=== PATIENT | female | born 1990 | race Caucasian/White ===

== ENCOUNTER 2025-03-28 16:38 | Emergency (ER) | payer OTHER, SELFPAY ==
[2025-03-28 16:40] VITALS: BP 120/99; PULSE 78; RESP 18; TEMP 37; O2SAT 97; BMI 48.2
--- NOTE | 2025-03-28 16:45 | EX.ED.DYSGE1 ---
HPI History of Present Illness Chief Complaint: Allergic Reaction Narrative Narrative: 34-year-old female past medical history of asthma and depression presents from urgent care with possible allergic reaction and chest heaviness. She relates history that she started taking Nexium on the 17, approximately 7 days ago. She took it this morning around 745. She started taking it with Benadryl because she began having itchiness after she took it the first time. She thought maybe that it was just from her regular allergies so she took Benadryl. This morning when she took the Nexium at 745, a few hours later at around 1130 she began having more chest heaviness which was new for her. She used her albuterol inhaler as well, but still continued to have tingling in the back of her throat and chest heaviness. She denies any nausea or vomiting, no diaphoresis, no exacerbating or alleviating factors. She went to urgent care who urged her to come to the emergency department because of the chest heaviness possibly being cardiac in nature. She denies any family history of early coronary artery disease. [facility] Medical History (Updated 03/28/25 @ 19:55 by Irving Booth MD) Asthma Migraines Depression Allergy/AdvReac Type Severity Reaction Status Date / Time No Known Allergies Allergy Verified 03/28/25 16:42 Social History Smoking Status: Former smoker ROS ROS ED ROS Narrative Review of systems positive for pruritus of skin improved with Benadryl. Positive chest heaviness today beginning at around 11 or 1130, approximately 5 hours ago. Positive tingling in back of throat. Positive shortness of breath with history of asthma. EXAM Physical Exam Narrative Exam Narrative: Afebrile. Vital signs noted. Nontoxic-appearing. HEENT examination grossly unremarkable, PERRL, EOMI. Airway patent, no drooling or trismus. No angioedema of tongue. Cardiovascular examination regular rate and rhythm. Lungs are clear to auscultation bilaterally without wheezing or stridor. Abdomen soft and nontender. Neurological examination nonfocal, nonlateralizing. No noted rash. Const Vital Signs: 03/28/25 16:40 03/28/25 18:35 03/28/25 19:51 Temperature 98.6 F Temperature Source Oral Pulse Rate 78 75 72 Respiratory Rate 18 23 H 16 Blood Pressure 120/99 H 102/79 119/79 Blood Pressure Mean 106 86 92 Pulse Ox 97 99 97 Oxygen Delivery Method Room Air Room Air Room Air MDM MDM MDM Narrative Medical decision making narrative: Differential diagnosis includes but not limited to anaphylaxis versus medication reaction versus asthma exacerbation versus ACS. I do not feel that she is having an anaphylactic reaction and she last took the Nexium at 7 AM, approximately 10 hours ago. She has stable vital signs with BP 120/99, she is not tachycardic. Pulse ox 97% on room air without evidence of hypoxia. Chest pain workup was pursued in order to rule out ACS. I do not feel she requires epinephrine. She was told to avoid the use of Nexium. EKG was obtained and interpreted by myself independently as normal sinus rhythm at 73 bpm without ectopy or acute ST changes. No STEMI. I reviewed her laboratory work and she has normal white count of 10.5, hemoglobin 13.1, hematocrit 38.7, platelet count normal at 268. Electrolyte panel is significant for carbon dioxide of 19.4 which may be secondary to slight hyperventilation, other electrolytes normal with glucose 84, normal anion gap of 12. Initial high-sensitivity troponin is less than 6. On independent interpretation of her chest x-ray in 1 view, there is no acute process, no pneumonia or pneumothorax. I reviewed the radiology report which confirms my independent interpretation. Repeat examinations show her resting comfortably and at times she has a pulse ox of 100% on room air. She states she feels slightly improved. Her repeat troponin is also less than 6 for an acceptable delta troponin. I feel she has been ruled out for ACS with biomarkers. At this point in time, I feel she can be discharged safely home with follow-up. Return instructions to the emergency department were reviewed. While she is to avoid the use of Nexium, I do not feel that she was having an anaphylactic reaction and that she requires epinephrine as an outpatient. Disposition is discharged home in stable condition. History & Record Review Discussion w/independent historian: Patient Lab Data Attestation: I reviewed the patient's lab results. Labs: Laboratory Results - last 24 hr 03/28/25 03/28/25 17:15 18:55 WBC 10.5 RBC 4.56 Hgb 13.1 Hct 38.7 MCV 84.9 MCH 28.7 MCHC 33.9 RDW Std Deviation 39.8 RDW Coeff of Leona 12.9 Plt Count 268 MPV 11.9 Immature Gran % (Auto) 0.300 Neut % (Auto) 62.6 Lymph % (Auto) 26.4 Gilmer % (Auto) 6.6 Eos % (Auto) 3.6 Baso % (Auto) 0.5 Absolute Neuts (auto) 6.6 Absolute Lymphs (auto) 2.76 Nucleated RBC % 0 Sodium 139 Potassium 3.8 Chloride 107 Carbon Dioxide 19.4 L Anion Gap 12 BUN 10 Creatinine 0.98 Estim Creat Clear Calc 97.51 Est GFR (MDRD) Non-Af 79 BUN/Creatinine Ratio 9.8 L Glucose 84 Calcium 9.2 Troponin T High Sens < 6 Troponin T Hi Sens 2 Hr < 6 Radiography Chest X-Ray - ED: 1 View, Read by ED Physician, Read by Radiologist and No Acute Disease Diagnostic Testing: Clinical Impression(s) from Imaging Studies Chest X-Ray 03/28/25 17:20 IMPRESSION: No focal consolidations. Reading Location: [facility] Discharge Plan Triage Chief Complaint: Allergic Reaction ED Provider: Irving Booth Dx/Rx/DC Orders Clinical Impression: Chest pain, Medication adverse effect Instructions: ED ADVERSE DRUG REACTION Allergic, ED Chest Pain, Uncertain Cause Primary Care Provider: Care Physician,No Primary Referrals: Care Physician,No Primary [Primary Care Provider] - Activity Restrictions/Additional Instructions: Avoid the use of Nexium in the future. Return to the emergency department with increased chest pain/pressure, difficulty breathing or swallowing, new or worsening symptoms. Print Language: Kazakh Disposition Disposition: Home, Self Care
--- NOTE | 2025-03-28 16:52 | EKG12_ITS ---
Test Reason : Blood Pressure : */* mmHG Vent. Rate : 73 BPM Atrial Rate : 73 BPM P-R Int : 182 ms QRS Dur : 74 ms QT Int : 392 ms P-R-T Axes : 24 35 13 degrees QTcB Int : 431 ms Normal sinus rhythm Normal ECG Confirmed by MARISOL BO, KAROLINA ([id number]), technical writer and editor BONI BARNES ([id number]) on 04/01/2025 9:41:13 AM Referred By: MEIR Confirmed By: KAROLINA DAMON MD
--- NOTE | 2025-03-28 17:20 | RAD_ITS ---
PROCEDURE: CHEST 1 VIEW (PORTABLE) 03/28/2025 REASON FOR EXAM: CHEST PAIN TECHNIQUE: Frontal view of the chest. COMPARISON: None FINDINGS: No focal consolidation. No pleural effusion or pneumothorax. Cardiac silhouette is within normal limits. RAD/Chest 1 View (Portable) IMPRESSION: No focal consolidations. Reading Location: [id number]
[2025-03-28 17:38] LABS: Hematocrit 38.7 % (37-47); Hemoglobin 13.1 g/dL (12.0-15.0); Immature Granulocytes Count 0.030 X10^3/uL (0.0-0.0); Mean Corp Hgb Conc 33.9 g/dL (32-36); Mean Corpuscular Volume 84.9 fL (81-99); Mean Platelet Vol. 11.9 fl (6.2-12.0); NRBC Flagged by Analyzer 0 % (0-5); Platelet Count 268 K/mm3 (150-450); RBC Distribution Width CV 12.9 % (11.6-14.6); RBC Distribution Width SD 39.8 fl (35.1-43.9); Red Blood Count 4.56 M/mm3 (4.2-5.4); White Blood Count 10.5 K/mm3 (4.4-11.0)
[2025-03-28 18:11] LABS: Troponin T High Sensitivity < 6 ng/L (<=14)
[2025-03-28 18:17] LABS: Anion Gap 12 (5-15); BUN 10 mg/dL (4-19); BUN/Creat Ratio 9.8 RATIO (10-20); Calcium,Total 9.2 mg/dL (7.6-11.0); Carbon Dioxide 19.4 mmol/L (21.0-32.0); Chloride 107 mmol/L (98-108); Estimated Creatinine Clearance 97.51 ml/min (50-250); Glucose 84 mg/dL (70-99); Potassium 3.8 mmol/L (3.3-5.1)
[2025-03-28 18:35] VITALS: BP 102/79; PULSE 75; RESP 23; O2SAT 99
[2025-03-28 19:44] LABS: Troponin T High Sens 2 HR < 6 ng/L (<=14)
[2025-03-28 19:51] VITALS: BP 119/79; PULSE 72; RESP 16; O2SAT 97
[2025-03-28 20:07] VITALS: BP 104/84; PULSE 76; RESP 18; TEMP 36.7; O2SAT 100
== END 2025-03-28 20:07 | disposition home or self-care (01) ==
PROVIDERS: Emergency Provider Emergency Medicine; Visit Provider Emergency Medicine
DX: R07.89 Other chest pain (principal); T47.1X5A Adverse effect of other antacids and anti-gastric-secretion drugs, initial encounter; Z87.891 Personal history of nicotine dependence; J45.909 Unspecified asthma, uncomplicated
CPT/HCPCS: 71045; 80048; 84484; 85025; 93005; 99284; A4216